=== PATIENT | female | born 1965 | race Caucasian/White ===

== ENCOUNTER 2021-09-15 09:30 | Emergency (ER) | payer BC ==
--- OUTSIDE RECORDS SUMMARY | 2021-09-15 09:33 | XMS REPORT | Continuity of Care Document ---
:1965 Author Organization [facility] t Address [address] [place] [address] Care Team Providers Name Role Phone Vanessa Attending Clinician Unavailable Cirilo PIÑA Attending Clinician Unavailable Physician, Primary or Family Admitting Clinician Unavailabl e Cirilo PIÑA Admitting Clinician Unavailable Payers Payer Name Policy Type Policy Number Effective Date Expiration Date S ource Problems This patient has no known problems. Allergies, Adverse Reactions, Alerts Allergy Allergy Status Severity Reaction(s) Onset Inactive Treating Comm ents Source Name Type Date Date Clinician No Known DA [facility] [place] [facility] No Known DA Active [facility] [place] [facility] Medications This patient has no known medications. Procedures This patient has no known procedures. Encounters Start End Encounter Admission Attending Care Care Encounter Source Date/Time Date/Time Type Type Clinicians Facility Department ID 2020-12-11 Inpatient OLAF Sandoval [id number] [facility] 09:32:00 Zoe [id number] [facility] 2021-01-22 2021-01-22 Outpatient OLAF Sandoval [id number] [facility] 05:09:00 05:09:00 oZe [id number] [facility] 2021-01-20 2021-01-20 Outpatient OLAF Sandoval [id number] [facility] 12:00:00 12:00:00 Zoe [id number] [facility] 2021-01-13 2021-01-13 Outpatient Vanessa [facility] [id number] [facility] 12:30:00 12:30:00 Zoe [id number] [facility] 2020-03-18 2020-03-18 [facility] 0216 Memoria 14:13:00 14:13:00 AMPARO [facility] 2020-02-08 2020-02-08 Outpatient [facility] 0177 Memoria 14:10:00 14:10:00 AMPARO [facility] Results Test Description Test Time Test Comments Results Result Comments Source BREAST,EXCISION OF LESION/MASS 2021-01-27 16:25:00 Test Item Value Reference Range Interpretation Comme nts BREAST,EXCISION RUN DATE: OF LESION/MASS 01/27/21 [facility] PAGE 1 RUN TIME: 071 (test code = Specimen Inquiry RUN USER: INTERFACE ANNY) PATIENT: GERALDINE FOX LOC: [facility] U #: [id number] AGE/SX: 55/ F ROOM: RE01/22/21REG DR: Zoe Mendez MD : 61 BED: DIS: STATUS: [facility] TLOC: SPEC #: [id number] RECD: STATUS: CAITY RE #: [id number] ADIS: 01/22/21- SUBM DR: Zoe Mendez MD ENTERED: 01/22/21 SP TYPE: BREAST,EXC OTHR DR: ORDERED: LEVEL SURGIC CODES: [id number] - BREAST, NOS [id number] - LYMPH NODE, NOS PROCEDURES: LEVEL SURGIC (Incomplete) TISSUES: BREAST, NOS - LEFT LUMPECTOMY LYMPH NODE, NOS - LEFT SENTINAL LY MPH NODE CLINICAL HISTORY 55 year old, LEFT breast cancer (wpd) FINAL DIAGNOSIS LE FT breast, lumpectomy: - invasive and microinvasive ductal carcinoma (please see tumor details be low) - ductal carcinoma in-situ, two foci (please see tumor details below) - apocrine met aplasia, duct ectasia, cyst formation, columnar cell hyperplasia without atypia and usual jens lisbeth hyperplasia without atypia associated with calcifications LEFT sentinel lymph nodes, d issection: - isolated tumor cells present in one of three lymph nodes (0/3) TUMOR DETAIL S: Procedure: LEFT lumpectomy Tumor Site: 3 o'clock Tumor Size: Largset focus- 8.5 mm Histologic Type: Invasive carcinoma of no special type (ductal) Histologic G rade (Margaret Histologic Score): Glandular (Acinar)/Tubular Differentiation: Score 2 Nuclear Pleomorphism: Score 1 Mitotic Rate: Score 1 Overall Grade: 1 CONTINUED ON NEXT PAGE RUN DATE: 01/27/21 [facility] PAGE 2 RUN TIME: 1746 Specimen Inquiry RUN USER: INTERFACE SPEC #: [id number] PATIENT: GERALDINE FOX #[id number] (Continued) FINAL DIAGNOSIS (Continued) Tumor Focality: Multiple foci of invasive carcinoma Number of foci: 2 Sizes of individual foci: 1 mm (microinvasive) and 8.5 mm Ductal Carcinoma In Situ (DCIS): P resent with extensive intraductal component (EIC) Size (Extent) of DCIS: 5 mm and 24 mm Architectural Patterns: Cribriform Nuclear Grade: Grade I (low) - smaller focus Grade II (intermediate) - larger focus Necrosis: Present, central (expansive "comedo" necrosis) in larger focus only Lobular Carcinoma In Situ (LCIS): Not identified Margins: Invasive Carcinoma Margins: Uninvolved by invasive carcinoma Distance from closest ma rgins: 3.5 mm from deep and 4.5 mm from anterior Distance from other margins: >10 mm from remaining margins DCIS Margins: Uninvolved by DCIS Distance from closest margin : 1 mm from deep and anterior Distance from other margins: >10 mm from remaining Joann onal Lymph Nodes: Total Number of Lymph Nodes Examined: 3 Number of [place] Nodes Exa mined: 3 Number of Lymph Nodes with Macrometastases: 0 Number of Lymph Nodes wi th Micrometastases: 0 Number of Lymph Nodes with Isolated Tumor Cells: 1 Treatment Ef fect in the Breast: No known presurgical therapy Lymphovascular Invasion: Not identified Pathologic Stage Classification (pTNM, AJCC 8th Edition): pT1b,N0(i+)(sn) Paty bain Studies: Breast Biomarker Testing Performed on Previous Biopsy, [id number] Estrogen Receptor (ER): Positive (100%) Progesterone Receptor (PgR): Positive (30%) HER2 ( by immunohistochemistry): Equivocal (Score 2+) HER2 (by in situ hybridization): Negative (n ot amplified) Ki-67 percentage of positive nuclei: 29% (high) Microcalcifications: Presen t in DCIS and non-neoplastic tissue CPT: 47492 x2, 87889-29 x2, 21714-21 [facility]/wpd CONTINUED ON NEXT PAGE RUN DATE: 01/27/21 [facility] PAGE 3 RUN TIME: 1746 Specimen Inquiry RUN USER: INTERFACE SPEC #: [id number] PATIENT: GERALDINE FOX #[id number] (Continued) GROSS DESCRIPTION ANATOMIC SOURCE OF TISSUE (per Requisition): 1. LEFT lumpectomy (long - lateral, double - deep, shor t - superior) 2. LEFT sentinel lymph node Each specimen is labeled with the patient's name and medical record number. Specimen #1 is designated "LEFT lumpectomy (long - lateral, double - de ep, short - superior)" and consists of a LEFT lumpectomy specimen, 7 cm from medial to lateral, 8 cm from superior to inferior and 4 cm from anterior to posterior. No needle guidewire is noted. Orien tation sutures are placed as follows: short - superior, long - lateral, double - deep. An off- white, firm mass is noted in the slices 6 and 7. The mass is 0.3 cm from the closest anterior ney n. A hemorrhagic previous biopsy site is noted surrounding this lesion from slices 4 - 7. A PATRICIA S cout is noted in slice 7. No other lesion is identified. The fibrous tissue to adipose ti ssue ratio is approximately 1:9. Ink code: Blue - superior Red - inferior Black - posteri or Green - anterior Cole - medial Purple - lateral The entire specimen is submitted from s uperior to inferior as follows: Slice 1 - A1 Slice 2 - A2 and A3 Slice 3 - A4 and A5 Slice 4 - A6 through A8 Slice 5 - A9 and A10 Slice 6 - A11 through A13 Slice 7 - A14 through A16 (A15 contain s section with PATRICIA Mechanical Systems Design Engineer removed) Slice 8 - A17 through A19 Slice 9 - A20 through A22 Slice 10 - A23 and A24 Slice 11 - A25 through A27 Slice 12 - A28 through A30 Slice 13 - A31 and A32 Sli ce 14 - A33 and A34 Slice 15 - A35 Slice 16 - A36 Specimen #2 is designated "LEFT sentinel ly mph node" and consists of a 4.5 x 3.7 x 0.9 cm yellow fatty tissue. It contains three nieves-yellow ly mph nodes ranging from 1.0 - 1.1 cm. The lymph nodes are sectioned and submitted in toto in B1 - 1 lymph CONTINUED ON NEXT PAGE RUN DATE: 01/27/21 [facility] PAGE 4 RUN TIME: 1746 Specimen Inquiry RUN USER: INTERFACE SPEC #: [id number] PATIENT: GERALDINE FOX #[id number] (Continued) GROSS DESCRIPTION (Continued) node, B2 - 1 lymph node, B3 - 1 lymph node, B4 and B5 - remaining tissue in toto. tam/franco 01/22/21 MICROSCOPIC DESCRIPTION LEFT breast, lumpectomy: There is an 8.5 mm invasive ductal carcinoma, as well as a separate 1 mm focus of microinvasion which separate from the larger nico or mass. They each have some tubules, a low nuclear grade and a low mitotic rate. The closest margin is the deep which is 3.5 mm away, followed by the anterior margin which is 4.5 mm. All other margins are greater than 10 mm. There is no lymphovascular invasion and no calcifications identified . Ductal carcinoma in-situ is found adjacent to and involving multiple slices of the specimen (sl ice 3 to slice 9, and slice 11 to slice 13). These two foci are at least 24 mm and 5 mm. The largest has intermediate nuclear grade, a cribriform pattern with comedo necrosis and is seen 1 mm from the de ep margin. Calcifications are present in each focus. The smaller focus has a cribriform pattern, a low nuclear grade and no necrosis. The uninvolved parenchyma has apocrine metaplasia, columna r cell hyperplasia without atypia, usual ductal hyperplasia without atypia, cyst formation and d uct ectasia and there are associated calcifications. Specimen #2 LEFT sentinel lymph nodes: Three lymph nodes are identified. One has very rare isolated tumor cells. The following technical components were performed at [employer], [address] [place] [address], [address], [place] [address]. The inte rpretation is provided by [facility], [address] [place] [address]. Controls received from [facility] [facility] stained appropriately. INTERPRETATION: Block A15- p63: Posi tive in DCIS and negative in invasive carcinoma SMM-HC: Positive in DCIS and negative in invasiv e carcinoma Blocks B1, B2, B3- pancytokeratin: Less than 10 isolated tumor cells are fou nd within one of the lymph nodes (block B1). The remaining B2 and B3 are negative. lsh/wpd Signed Rosa Isela Muñiz MD 01/27/21 1625 END OF REPORT - NM [id number] 09:40:00 [facility] 1965 Sex: F Patient Name: GERALDINE FOX Unit No: [id number] EXAMS: CPT CODE: [id number] OR LYMPHIMAG 09194 Nuclear medicine sentinel node study HISTORY: Left breast cancer. FIN DINGS: The injection of 0.655 mCi of filtered sulfur colloid was performed in the left breast understerile conditions and local anesthesia for sentinel lymph node identification. The injection wasperformed at 0535 hours. Imaging of the neck and chest demonstrates a sentinel node in the anterior left axillary region located medial and superior to the area of injection. IMPRESSION: Left axillary sentinel node. SL: [id number] at 0940 Reported and signed by: Elmer Levine MD CC: Zoe Mendez MD Technologist: Delio Blancasscrbd D/ ([phone]) [email or web address] Orig Print D/T: S: 01/22/2021 (0943) [facility] NAME: GERALDINE FOX Radiology Department PHYS: Zoe Alvarez MD [address] : 1965 AGE: 55 SEX: F [place], [place] [address] LOC: [place] PHONE #: [phone] EXAM DATE: 01/22/2021 STATUS: REG SD FAX #: [phone] RAD NO: Page 1 Signed ReportCOVID 19 Asymptomatic IH [id number] 14:43:00 Test Item Value Reference Range Interpretation Comments COVID 19 NEGATIVE NEGATIVE This test has b een Asymptomatic IH AG authorize d only for the (test code = detection ofpro teins from COVNONPUIAG) SARS-CoV-2, not for any other viruses orpathogens. N egative results should be treated as presumptive andconfirmed wi th a molecular assay , if necessary for patientmanageme nt. Negative result s do not rule out COVID- 19 andshould not b e used as the sole basis for treatment orpat ient management deci sions, including infec tion controldecision s. Negative result s should be considered i n thecontext of a patient's recent exposure s, history and thepresence of clinical signs and symptoms consis tent withCOVID-19. T his test has not been FD A cleared or approved; th e test hasbeen authori paiged by FDA under an Emerge ncy Use Authorization(E UA) for use by laborato skye certified under the CLIA thatmeet the re quirements to perform mode rate, high or waivedcomple xity tests. This eliceo t is authorized for use at thePoint of Car e (POC), i.e., in patien t care settingsoperati ng under a CLIA Certificat e of Waiver, Certifi janice ofCompliance, o r Certificate of Accreditation. This test is only authori zed for the duration of thedeclaration that circumstances e xist justifying theauthorizatio n of emergency use o f in vitro diagnostic test sfor detection and/o r diagnosis of CO VID-19 under Onmbghi26 4(b)(1) of the Act, 21 U.S .C. 360bbb-3(b)(1), unless theauthorizatio n is terminated or r evoked sooner. CBC W/AUTO [id number] 13:46:00 Test Item Value Reference Range Interpretation Comments WHITE BLOOD CELL (test code = WBC) 4.2 K/mm3 6.5-12.3 L RED BLOOD CELL (test code = RBC) 4.62 M/mm3 3.51-4.69 N HEMOGLOBIN (test code = HGB) 14.9 g/dL 10.1-13.8 H HEMATOCRIT (test code = HCT) 45.3 % 32.5-41.8 H MEAN CELL VOLUME (test code = MCV) 98.1 fL 84.6-96.6 H MEAN CELL HGB (test code = MCH) 32.3 pg 27.3-33.9 N MEAN CELL HGB CONCETRATION (test 32.9 gm/dL 32.0-34.2 N code = MCHC) RED CELL DISTRIBUTION WIDTH (test 12.5 % 12.2-16.3 N code = RDW) PLATELET COUNT (test code = PLT) 117 K/mm3 134-363 L MEAN PLATELET VOLUME (test code = 11.6 fL 9.2-12.7 N MPV) NEUTROPHIL % (test code = NT%) 54.3 % 57.9-77.3 L LYMPHOCYTE % (test code = LY%) 34.8 % 14.5-29.7 H MONOCYTE % (test code = MO%) 8.3 % 3.6-10.2 N EOSINOPHIL % (test code = EO%) 1.7 % 0.0-3.0 N BASOPHIL % (test code = BA%) 0.7 % 0.1-0.9 N NEUTROPHIL # (test code = NT#) 2.3 K/mm3 LYMPHOCYTE # (test code = LY#) 1.5 K/mm3 MONOCYTE # (test code = MO#) 0.4 K/mm3 EOSINOPHIL # (test code = EO#) 0.07 K/mm3 BASOPHIL # (test code = BA#) 0.0 K/mm3 RBC MORPHOLOGY REQUIRED (test code NORMAL NORMAL = RBCM) PLATELET MORPHOLOGY REQUIRED (test NORMAL NORMAL code = PLTMR) BREAST,[id number] 09:58:00 Test Item Value Reference Range Interpretation Comments BREAST,BIOPSY (test code = BREABX) RUN DATE: 12/23/20 [facility] PAGE 1 RUN TIME: 1417 Specimen Inquiry RUN USER: INTERFACE PATIENT: GERALDINE FOX LOC: [place] U #: [id number] AGE/SX: 55/F ROOM: RE12/11/20REG DR: Zoe Mendez MD : 61 BED: DIS: STATUS: SAMIR ALVAREZ TLOC: SPEC #: [id number] RECD: 12/12/20 STATUS: CAITY DIAZ #: [id number] ADIS: 12/11/20- [facility] DR: Zoe Mendez MD ENTERED: 04/29/21-0751 SP TYPE: BREABX OTHR DR: Nataliia Mendoza MD ORDERED: LEVEL IV ADDENDUM FINDINGS Addendum #1 Entered: 12/23/20-1219 Following is the FISH Analysis received from Rosa Esqueda M.D. at [facility] on December 23, 2020. HER-2 BREAST FISH ANALYSIS Specimen site: LEFT breast 3:00 - [id number] Result NEGATIVE INTERPRETATION: Average HER2 signals/nucleus: 2.2 Average SVETA 17 signals/nucleus: 1.9 HER2/SVETA 17 signal ratio: 1.2 Number of Observers: 1 Results show no evidence of HER2 amplification and a HER2/CEN17 ratio of <2.0 with an average HER2 copy number <4.0 signals per cell. This is a NEGATIVE result. Methodology: Along with fluorescence in situ hybridization (FISH), an H E stained slide was reviewed by a pathologist to identify the target area containing invasive tumor. FISH analysis of 50 interphase nuclei was performed within the marked target area using a dual-probe FISH assay. Controls performed appropriately. I acknowledge the above findings. Rosa Isela Muñiz M.D., Pathologist/wpd December 23, 2020 CONTINUED ON NEXT PAGE RUN DATE: 12/23/20 [facility] PAGE 2 RUN TIME: 1417 Specimen Inquiry RUN USER: INTERFACE SPEC #: [id number] PATIENT: GERALDINE FOX #[id number] (Continued) ADDENDUM FINDINGS (Continued) Addendum Signed ____ Rosa Isela Muñiz MD 12/23/201416 ([facility]) ____ Rosa Isela Muñiz MD 12/23/201416 CODES: [id number] - BREAST, NOS [place]IES [place]: [place] [address] [place] [address] Zoe Mendez MD [address] [facility] [address] [place] [address] PROCEDURES: LEVEL IV (Incomplete) TISSUES: BREAST, NOS - LEFT BREAST BIOPSY CLINICAL HISTORY 55 year old, mass, ultrasound-guided biopsy (reyna) NOTE: LEFT breast 3:00, 1 cm: Biopsy: 12/11/20 @ 1432 In formalin: 12/11/20 @ 1435 Out of formalin: 12/12/20 @ 1821 FINAL DIAGNOSIS LEFT breast at 3:00, 1 cm, ultrasound-guided core biopsy: - invasive ductal carcinoma - Margaret score 4 (tubules - 2, nuclear grade - 1, mitoses - 1) - Overall grade: 1 - Size/extent: involving all cores, 4.5 mm largest focus - ER: Positive, 100% - PgR: Positive, 30% - HER2/sonal: Equivocal FISH pending, addendum to follow - Ki-67: 29% (high) - ductal carcinoma in situ - Size/extent: Less than 1% of tumor - Nuclear grade: 1 CONTINUED ON NEXT PAGE RUN DATE: 12/23/20 [facility] PAGE 3 RUN TIME: 1417 Specimen Inquiry RUN USER: INTERFACE SPEC #: [id number] PATIENT: GERALDINE FOX #[id number] (Continued) FINAL DIAGNOSIS (Continued) - Pattern: Solid and cribriform without necrosis CPT: 31804, 97704-19, 26149-33 [facility]/wpd GROSS DESCRIPTION ANATOMIC SOURCE OF TISSUE (per Requisition): LEFT breast 3:00, 1 cm The specimen is received in a formalin-filled container, labeled with the patient's name and designated "LEFT breast 3:00, 1 cm". The specimen consists of three yellow fibrofatty cores of tissue ranging from 1.3 - 1.7 cm, submitted in toto in A1. katty 12/12/20 MICROSCOPIC DESCRIPTION The following technical components were performed at [facility] [place], [address] [place] [address], [address], [place] [address]. The interpretation is provided by [facility], [facility] [place] [address]. Controls received from [facility] stained appropriately. INTERPRETATION: Block A1- SMM-HC: Positive only in DCIS and normal p63: Positive only in DCIS and normal The following results are received from [facility], [place], [place] on December 15, 2020. BODY SITE: LEFT breast 3:00 - [id number] PROGNOSTIC / PREDICTIVE MARKERS Histology Image Analysis, Global IHC Quantitative Breast Panel Interpretation: Focal equivocal staining is noted for HER2/sonal by IHC. Assessment of HER2/sonal gene status in our FISH laboratory has been ordered. ER: POSITIVE Tumor Stained: 100% Intensity: 3+ Eric Score: 8 PgR: POSITIVE CONTINUED ON NEXT PAGE RUN DATE: 12/23/20 [facility] PAGE 4 RUN TIME: 1417 Specimen Inquiry RUN USER: INTERFACE SPEC #: [id number] PATIENT: GERALDINE FOX #[id number] (Continued) MICROSCOPIC DESCRIPTION (Continued) Tumor Stained: 30% Intensity: 2+ Eric Score: 5 HER2 Breast: EQUIVOCAL FISH PENDING, ADDENDUM TO FOLLOW Score: 2+ Percentage of cells with uniform Intensive Complete Membrane Stainin% KI67: HIGH Tumor Stained: 29% Intensity: 3+ COMMENT: Specimen handling met the requirements specified in the latest version of the ASCO/CAP guidelines. I acknowledge the above findings. Signed Rosa Isela Muñiz MD 12/13/20 0958 END OF REPORT BREAST,[id number] 09:58:00 Test Item Value Reference Range Interpretation Comments BREAST,BIOPSY (test code = BREABX) RUN DATE: 12/16/20 [facility] PAGE 1 RUN TIME: 1319 Specimen Inquiry RUN USER: INTERFACE PATIENT: GERALDINE FOX LOC: [facility] U #: [id number] AGE/SX: 55/F ROOM: RE12/11/20REG DR: Zoe Mendez MD : 61 BED: DIS: STATUS: DEP REF TLOC: SPEC #: [id number] RECD: 12/12/20 STATUS: CAITY REQ #: [id number] ADIS: 12/11/20- SUBM DR: Zoe Mendez MD ENTERED: 12/12/20 SP TYPE: BREABX OTHR DR: Nataliia Mendoza MD ORDERED: LEVEL IV CODES: [id number] - BREAST, NOS [place]IES TO: [place] [address] [place] [address] Zoe Mendez MD [address] [facility] [address] [place] [address] PROCEDURES: LEVEL IV (Incomplete) TISSUES: BREAST, NOS - LEFT BREAST BIOPSY CLINICAL HISTORY 55 year old, mass, ultrasound-guided biopsy (reyna) NOTE: LEFT breast 3:00, 1 cm: Biopsy: 12/11/20 @ 1432 In formalin: 12/11/20 @ 1435 Out of formalin: 12/12/20 @ 1825 FINAL DIAGNOSIS LEFT breast at 3:00, 1 cm, ultrasound-guided core biopsy: - invasive ductal carcinoma - Stanfield score 4 (tubules - 2, nuclear grade - 1, mitoses - 1) - Overall grade: 1 - Size/extent: involving all cores, 4.5 mm largest focus - ER: Positive, 100% - PgR: Positive, 30% - HER2/sonal: Equivocal FISH pending, addendum to follow - Ki-67: 29% (high) - ductal carcinoma in situ - Size/extent: Less than 1% of tumor - Nuclear grade: 1 CONTINUED ON NEXT PAGE RUN DATE: 12/16/20 [facility] PAGE 2 RUN TIME: 1319 Specimen Inquiry RUN USER: INTERFACE SPEC #: [id number] PATIENT: GERALDINE FOX #[id number] (Continued) FINAL DIAGNOSIS (Continued) - Pattern: Solid and cribriform without necrosis CPT: 28815, 63104-68, 50481-98 [facility]/wpd GROSS DESCRIPTION ANATOMIC SOURCE OF TISSUE (per Requisition): LEFT breast 3:00, 1 cm The specimen is received in a formalin-filled container, labeled with the patient's name and designated "LEFT breast 3:00, 1 cm". The specimen consists of three yellow fibrofatty cores of tissue ranging from 1.3 - 1.7 cm, submitted in toto in A1. enrrique/reyna 12/12/20 MICROSCOPIC DESCRIPTION The following technical components were performed at [facility] [place], [address] [place] [address], [address], [place] [address]. The interpretation is provided by [facility], [address] [place] [address]. Controls received from [facility] stained appropriately. INTERPRETATION: Block A1- SMM-HC: Positive only in DCIS and normal p63: Positive only in DCIS and normal The following results are received from [facility], [place], [place] on December 15, 2020. BODY SITE: LEFT breast 3:00 - [id number] PROGNOSTIC / PREDICTIVE MARKERS Histology Image Analysis, Global IHC Quantitative Breast Panel Interpretation: Focal equivocal staining is noted for HER2/sonal by IHC. Assessment of HER2/sonal gene status in our FISH laboratory has been ordered. ER: POSITIVE Tumor Stained: 100% Intensity: 3+ Eric Score: 8 PgR: POSITIVE CONTINUED ON NEXT PAGE RUN DATE: 12/16/20 [facility] PAGE 3 RUN TIME: 1319 Specimen Inquiry RUN USER: INTERFACE SPEC #: [id number] PATIENT: GERALDINE FOX #[id number] (Continued) MICROSCOPIC DESCRIPTION (Continued) Tumor Stained: 30% Intensity: 2+ Eric Score: 5 HER2 Breast: EQUIVOCAL FISH PENDING, ADDENDUM TO FOLLOW Score: 2+ Percentage of cells with uniform Intensive Complete Membrane Stainin% KI67: HIGH Tumor Stained: 29% Intensity: 3+ COMMENT: Specimen handling met the requirements specified in the latest version of the ASCO/CAP guidelines. I acknowledge the above findings. Signed Rosa Isela Muñiz MD 12/13/20 0958 END OF REPORT
[2021-09-15 09:45] LABS: Urine Blood Negative (Negative); Urine Glucose Negative (Negative); Urine Protein Negative (Negative); Urine Specific Gravity 1.015 (1.005-1.030); Urine pH 5.5 (5.0-7.0)
[2021-09-15 09:52] LABS: Absolute Lymphocytes (CBC) 1.1 K/uL (0.7-4.9); Hematocrit 42.6 % (36.0-45.0); MPV 8.8 fL (7.6-11.3); RBC Red Blood Cell Count 4.34 M/uL (3.86-4.86)
--- NOTE | 2021-09-15 10:06 | RAD REPORT ---
EXAM DESCRIPTION: CT - Head Brain Wo Cont - 09/15/2021 9:54 am CLINICAL HISTORY: DIZZINESS Headache, drowsiness COMPARISON: No comparisons TECHNIQUE: All CT scans are performed using dose optimization technique as appropriate and may inclu de automated exposure control or mA/KV adjustment according to patient size. FINDINGS: No intracranial hemorrhage, hydrocephalus or extra-axial fluid collection.No areas of brai n edema or evidence of midline shift. The paranasal sinuses and mastoids are clear. The calvarium is intact. IMPRESSION: No acute intracranial abnormality.
[2021-09-15 10:13] LABS: Troponin High Sensitivity 6.4 pg/mL (<58.9)
[2021-09-15] MEDS ORDERED: ONDANSETRON 4 MG/2 ML VIAL ONE (10:25)
[2021-09-15] MEDS ORDERED: NA CHLORIDE 0.9% 1,000 ML ONE (10:26)
[2021-09-15] MEDS ORDERED: MECLIZINE HCL 12.5 MG TAB ONE (10:27)
--- NOTE | 2021-09-15 10:34 | RAD REPORT ---
EXAM DESCRIPTION: MRI - Brain Wo Cont - 09/15/2021 10:15 am CLINICAL HISTORY: DIZZINESS Headache, drowsiness COMPARISON: Head Brain Wo Cont dated 09/15/2021 TECHNIQUE: Multi-sequence, multiplanar MR imaging of the brain was performed without contrast. FINDINGS: No intracranial hemorrhage, hydrocephalus or extra-axial fluid collections. No edema or sh ift of midline structures. No findings to suspect brain mass. DWI is negative for acute CVA. Midline structures are normally formed. Mastoid air cells and paranasal sinuses are clear. IMPRESSION: Negative for acute CVA or other acute intracranial process.
[2021-09-15 11:13] LABS: Urine Bacteria <20 /HPF (<20); Urine RBC <5 /HPF (NONE SEEN)
--- NOTE | 2021-09-15 11:46 | ER ---
Nurse's Notes [facility] Name: Oralia Kenney Age: 56 yrs Sex: Female : 1965 Arrival Date: 09/15/2021 Time: 09:32 Bed 27 Private MD: Diagnosis: Other peripheral vertigo;Dizziness and giddiness Presentation: 09/15 09:45 Chief complaint: EMS states: pt became dizzy walking to her car and vomited x 3. ems jh6 started iv and was able to give zofran 4mg sloop captain. Coronavirus screen: Vaccine status: Patient reports receiving the 2nd dose of the covid vaccine. Ebola Screen: Patient negative for fever greater than or equal to 101.5 degrees Fahrenheit, and additional compatible Ebola Virus Disease symptoms. Initial Sepsis Screen: Does the patient meet any 2 criteria? No. Patient's initial sepsis screen is negative. Does the patient have a suspected source of infection? No. Patient's initial sepsis screen is negative. Risk Assessment: Do you want to hurt yourself or someone else? Patient reports no desire to harm self or others. Onset of symptoms was September 15, 2021. Care prior to arrival: Medication(s) given: zofran IV initiated. 09:45 Method Of Arrival: EMS: [facility] 09:45 Acuity: DG 2 6 Triage Assessment: 09:48 General: Appears uncomfortable, Behavior is calm, cooperative. Pain: Denies pain. 6 - Immunization history:: Client reports receiving the 2nd dose of the Covid vaccine. - Family history:: not pertinent. - Social history:: Smoking status: Patient denies any tobacco usage or history of. - Hospitalizations: : No recent hospitalization is reported. Screenin:48 Abuse screen: Denies threats or abuse. Nutritional screening: No deficits noted. 6 Tuberculosis screening: No symptoms or risk factors identified. Fall Risk None identified. Assessment: 09:49 General: Appears uncomfortable, Behavior is calm, cooperative, appropriate for age. jh6 Neuro: Reports dizziness, since this am. 10:46 Reassessment: Patient appears in no apparent distress at this time. Blankets given, ab2 lights dimmed. Vital Signs: 09:45 BP 106 / 54; Pulse 64; Resp 17; Temp 97.9; Pulse Ox 100% ; Weight 98.43 kg; Height 5 [facility] ft. 4 in. (162.56 cm); Pain 2/10; 10:46 BP 100 / 53; Pulse 57; Resp 16; Pulse Ox 98% on R/A; ab2 11:53 BP 107 / 65; Pulse 63; Resp 16; Pulse Ox 98% on R/A; ab2 09:45 Body Mass Index 37.25 (98.43 kg, 162.56 cm) [facility] Jossue Coma Score: 09:49 Eye Response: spontaneous(4). Verbal Response: oriented(5). Motor Response: obeys 6 commands(6). Total: 15. 10:46 Eye Response: spontaneous(4). Verbal Response: oriented(5). Motor Response: obeys ab2 commands(6). Total: 15. ED Course: 09:32 Patient arrived in ED. rn 09:32 Dave Valencia MD is Attending Physician. rn 09:35 EKG done, by ED staff, reviewed by Dave Valencia MD. 5 09:35 Patient has correct armband on for positive identification. Bed in low position. Call 5 light in reach. Side rails up X2. Warm blanket given. media monitor on. Pulse ox on. NIBP on. 09:37 Zoe Bravo, RN is Primary Nurse. jh6 09:47 Triage completed. jh6 09:[address] Patient moved to MRI via stretcher. jh6 09:48 Maintain EMS IV. Dressing intact. Good blood return noted. Site clean \T\ dry. Gauge \T\ 6 site: 20ga to rt ac. 09:52 CT Head Brain wo Cont In Process Unspecified. EDMS 10:15 Brain Wo Cont MRI In Process Unspecified. EDMS 11:45 Khurram Bacon MD is Referral Physician. rn 11:53 No provider procedures requiring assistance completed. IV discontinued, intact, ab2 bleeding controlled, No redness/swelling at site. Pressure dressing applied. Administered Medications: 10:30 Drug: NS 0.9% 1000 ml Route: IV; Rate: 1000 ml; Site: right antecubital; ab2 11:50 Follow up: Response: No adverse reaction; IV Status: Completed infusion ab2 10:30 Drug: Meclizine 50 mg Route: PO; ab2 10:50 Follow up: Response: No adverse reaction ab2 10:30 Drug: Zofran (Ondansetron) 4 mg Route: IVP; Site: right antecubital; ab2 10:50 Follow up: Response: No adverse reaction ab2 Outcome: 11:46 Discharge ordered by . rn 11:54 Discharged to home via wheelchair, with family. ab2 11:54 Condition: good 11:54 Discharge instructions given to patient, family, Instructed on discharge instructions, follow up and referral plans. medication usage, Demonstrated understanding of instructions, follow-up care, medications, Prescriptions given X 1. 12:20 Patient left the ED. ab2 Signatures: Dispatcher [employer] EDDave Crawford MD MD rn Martinez, Maria [facility] Zoe Bravo RN RN [facility] Alfonso Escobar ab2
--- NOTE | 2021-09-15 11:47 | EDPHYS ---
Physician Documentation [facility] Name: Oralia Kenney Age: 56 yrs Sex: Female : 1965 Arrival Date: 09/15/2021 Time: 09:32 Bed 27 Private MD: ED Physician Dave Valencia HPI: 09/15 09:42 This 56 yrs old Female presents to ER via Unassigned with complaints of Dizziness. rn 09:42 The patient presents with dizziness, sense of spinning. Onset: The symptoms/episode rn began/occurred this morning. Modifying factors: The symptoms are alleviated by holding head still, the symptoms are aggravated by movement of head, changing position. Associated signs and symptoms: Pertinent positives: head injury, nausea, Pertinent negatives: blurred vision, chest pain, confusion, diaphoresis, headache, seizure, shortness of breath, syncope, vomiting. Severity of symptoms: At their worst the symptoms were moderate in the emergency department the symptoms have improved. The patient has not experienced similar symptoms in the past. The patient has not recently seen a physician. Patient reports onset of dizziness and trouble walking about an hour ago. States this morning hit her head on the side of her house while walking her dog, denies loss of consciousness. Reports was here at hospital getting a bone density scan and following the scan felt dizzy and had trouble walking to her car, had to use the rail to get out of the hospital. Dizziness got worse when was in her car and did not feel like she could drive. Called 911 from the hospital parking lot. Feels better if not moving her head or changing position. Reports nausea but no vomiting. Denies vision problems or other focal neurological deficit. Only complaint is dizziness.. - Immunization history:: Client reports receiving the 2nd dose of the Covid vaccine. - Family history:: not pertinent. - Social history:: Smoking status: Patient denies any tobacco usage or history of. - Hospitalizations: : No recent hospitalization is reported. ROS: 09:42 Constitutional: Negative for fever, chills, and weight loss, Eyes: Negative for injury, rn pain, redness, and discharge, Neck: Negative for injury, pain, and swelling, Cardiovascular: Negative for chest pain, palpitations, and edema, Respiratory: Negative for shortness of breath, cough, wheezing, and pleuritic chest pain, Abdomen/GI: Negative for abdominal pain, vomiting, diarrhea, and constipation, Back: Negative for injury and pain, : Negative for injury, bleeding, discharge, and swelling, MS/Extremity: Negative for injury and deformity, Skin: Negative for injury, rash, and discoloration, Neuro: Negative for headache, weakness, numbness, tingling, and seizure. Exam: 09:42 Constitutional: This is a well developed, well nourished patient who is awake, alert, rn and in no acute distress. Head/Face: Normocephalic, atraumatic. Eyes: Periorbital areas with no swelling, redness, or edema. Cardiovascular: Regular rate and rhythm. No pulse deficits. Respiratory: No increased work of breathing, no retractions or nasal flaring. Abdomen/GI: Soft, non-tender Skin: Warm, dry MS/ Extremity: Pulses equal, no cyanosis. Neurovascular intact. Full, normal range of motion. Equal circumference. Neuro: Awake and alert, GCS 15, oriented to person, place, time, and situation. Cranial nerves II-XII grossly intact. Motor strength 5/5 in all extremities. Sensory grossly intact Vital Signs: 09:45 BP 106 / 54; Pulse 64; Resp 17; Temp 97.9; Pulse Ox 100% ; Weight 98.43 kg; Height 5 jh6 ft. 4 in. (162.56 cm); Pain 2/10; 10:46 BP 100 / 53; Pulse 57; Resp 16; Pulse Ox 98% on R/A; ab2 11:53 BP 107 / 65; Pulse 63; Resp 16; Pulse Ox 98% on R/A; ab2 09:45 Body Mass Index 37.25 (98.43 kg, 162.56 cm) jh6 Jossue Coma Score: 09:49 Eye Response: spontaneous(4). Verbal Response: oriented(5). Motor Response: obeys jh6 commands(6). Total: 15. 10:46 Eye Response: spontaneous(4). Verbal Response: oriented(5). Motor Response: obeys ab2 commands(6). Total: 15. MDM: 09:32 Patient medically screened. rn 11:43 Differential diagnosis: cardiac arrhythmia, CVA, generalized weakness, hypovolemia, rn idiopathic dizziness, TIA, vertigo. Data reviewed: vital signs, nurses notes, lab test result(s), EKG, radiologic studies, CT scan, MRI, and as a result, I will discharge patient. Counseling: I had a detailed discussion with the patient and/or guardian regarding: the historical points, exam findings, and any diagnostic results supporting the discharge/admit diagnosis, lab results, radiology results, the need for outpatient follow up, to return to the emergency department if symptoms worsen or persist or if there are any questions or concerns that arise at home. Response to treatment: the patient's symptoms have mildly improved after treatment, and as a result, I will discharge patient. Special discussion: I discussed with the patient/guardian in detail that at this point there is no indication for admission to the hospital. It is understood, however, that if the symptoms persist or worsen the patient needs to return immediately for re-evaluation. Based on the history and exam findings, there is no indication for further emergent testing or inpatient evaluation. I discussed with the patient/guardian the need to see the neurologist for further evaluation of the symptoms. ED course: Patient improved, CT and MRI negative for acute CVA or central cause of vertigo. Improved after meclizine. Blood work unremarkable. Stable vitals. Will discharge with meclizine/Zofran/neurology follow-up. Return precautions given and understood.. 11:47 ED course: Told patient that she can not be driving as long as she has vertigo symptoms rn for her is another safety, and will likely have to take about a week off of work.. 09/15 09:33 Order name: CBC with Diff; Complete Time: 10:37 rn 09/15 09:33 Order name: Basic Metabolic Panel; Complete Time: 10:37 rn 09/15 09:33 Order name: CT Head Brain wo Cont; Complete Time: 10:37 rn 09/15 09:33 Order name: Troponin High Sensitivity; Complete Time: 10:37 rn 09/15 09:34 Order name: Urine Microscopic Only; Complete Time: 11:17 rn 09/15 09:44 Order name: Urine Dipstick-Ancillary; Complete Time: 10:37 EDMS 09/15 09:33 Order name: IV Start; Complete Time: 09:37 rn 09/15 09:33 Order name: EKG; Complete Time: 09:34 rn 09/15 09:33 Order name: EKG - Nurse/Tech; Complete Time: 09:35 rn 09/15 09:33 Order name: Brain Wo Cont MRI; Complete Time: 10:37 rn 09/15 09:34 Order name: Urine Dipstick-Ancillary (obtain specimen); Complete Time: 10:50 rn 09/15 09:49 Order name: Labs - recollect needed: collect yellow urine top for umic.; Complete Time: bd 10:50 Administered Medications: 10:30 Drug: NS 0.9% 1000 ml Route: IV; Rate: 1000 ml; Site: right antecubital; ab2 11:50 Follow up: Response: No adverse reaction; IV Status: Completed infusion ab2 10:30 Drug: Meclizine 50 mg Route: PO; ab2 10:50 Follow up: Response: No adverse reaction ab2 10:30 Drug: Zofran (Ondansetron) 4 mg Route: IVP; Site: right antecubital; ab2 10:50 Follow up: Response: No adverse reaction ab2 Disposition Summary: 09/15/21 11:46 Discharge Ordered Location: Home rn Problem: new rn Symptoms: have improved rn Condition: Stable rn Diagnosis - Other peripheral vertigo rn - Dizziness and giddiness rn Followup: rn - With: Khurram Bacon MD - When: 1 week - Reason: Recheck today's complaints, Re-evaluation by your physician Discharge Instructions: - Discharge Summary Sheet rn - Dizziness rn - Vertigo rn Forms: - Medication Reconciliation Form rn - Thank You Letter rn - Antibiotic rn women services - Prescription Opioid Use rn - Work release form ab2 Prescriptions: - Meclizine 25 mg Oral Tablet - take 1 tablet by ORAL route every 8 hours As needed; 30 tablet; Refills: 0, rn Product Selection Permitted - ondansetron 8 mg Oral tablet,disintegrating - take 1 tablet by ORAL route every 8 hours As needed; 15 tablet; Refills: 0, rn Product Selection Permitted Signatures: Dispatcher [employer] Halina Aguilar Roman, MD MD rn Hastedt, Jennifer, RN RN [facility] Alfonso Escobar ab2
[2021-09-15 12:45] VITALS: TEMP 97.9
[2021-09-15 12:47] VITALS: O2SAT 98
[2021-09-15 12:48] VITALS: BP 107/65
--- NOTE | 2021-09-16 08:17 | EKG ---
Test Date: 2021-09-15 Test Time: 09:43:17 Water Hauler: JESENIA MEASUREMENT RESULTS: Intervals: Rate: 59 ND: 140 QRSD: 82 QT: 452 QTc: 447 [place]: P: 63 ND: 140 QRS: 49 T: 72 INTERPRETIVE STATEMENTS: Sinus bradycardia Otherwise normal ECG No previous ECG available for comparison Electronically Signed On 09-16-21 08:14:00 [employer]IOR [employer] SOFTWARE DEVELOPER by Calos Tim
== END 2021-09-15 12:20 | disposition home or self-care (01) ==
LOC: ER 09:30
DX: R42 Dizziness and giddiness (principal); H81.399 Other peripheral vertigo, unspecified ear
CPT/HCPCS: 96361; 93005; 85025; 80048; 36415; 84484; 70450; 70551; 96374; 99285; J7030; J2405; 81003; 81015; J8597